=== PATIENT | female | born 1950 | race Caucasian/White ===

== ENCOUNTER → 2016-08-14 | Outpatient (CLI) | payer MEDICAID | END | disposition home or self-care (01) | LOC: CFH 07:36 | PROVIDERS: ATTEND Nurse Practitioner Family | DX: K80.20 Calculus of gallbladder without cholecystitis without obstruction (principal) | CPT/HCPCS: 76700 ==

== ENCOUNTER 2016-10-15 13:20 | Emergency (ER) | payer MEDICARE, MEDICAID ==
[~2016-10-15] VITALS: Ht 152.4 cm; Wt 59.8 kg
[2016-10-15] MEDS ORDERED: SODIUM CHLORIDE 0.9% 1,000 ML IV ONE (14:02)
[2016-10-15] MEDS ORDERED: HYDROmorphone 1 MG/ML, 1ML ONE (14:23)
[2016-10-15] MEDS ORDERED: ONDANSETRON 2MG/ML, 2ML ONE (14:23)
[2016-10-15] MEDS: HYDROmorphone 1 MG/ML, 1ML IVPush PRN ×2 (14:28→16:05)
[2016-10-15] MEDS ORDERED: SODIUM CHLORIDE FLUSH 10ML SYR IVF ONE (14:30)
[2016-10-15] MEDS ORDERED: ONDANSETRON 2MG/ML, 2ML IVPush ONE (14:30)
[2016-10-15] MEDS ORDERED: SODIUM CHLORIDE 0.9% 1,000ML IVBOLUS ONE (14:30)
[2016-10-15 14:55] LABS: ASPARTATE AMINO TRANSFERASE 16 U/L (15-37); BLOOD UREA NITROGEN 15 mg/dL (7-18)
[2016-10-15 15:13] VITALS: BP 144/74
[2016-10-15] MEDS ORDERED: OMNIPAQUE 350 MG/ML, 100ML BOTTLE ONE (15:33)
[2016-10-15] MEDS ORDERED: ONDANSETRON ODT 4 MG PO ONE (17:00)
[2016-10-15] MEDS ORDERED: ONDANSETRON ODT 4 MG ONE (17:00)
== END 2016-10-15 17:03 ==
LOC: ED 16:57
DX: K52.9 Noninfective gastroenteritis and colitis, unspecified (principal); I10 Essential (primary) hypertension
CPT/HCPCS: 36415; 74177; 80053; 81001; 83690; 85025; 93005; 96361; 96374; 96375; 96376; 99285; J1170; J2405; J7030; Q0162; Q9967

== ENCOUNTER 2017-07-15 09:07 | Emergency (ER) | payer MEDICARE, MEDICAID ==
[~2017-07-15] VITALS: Ht 152.4 cm; Wt 63.8 kg
[2017-07-15] MEDS ORDERED: BACITRACIN ZINC OINT 500U/GM, 0.9 GM ONE (09:39)
[2017-07-15] MEDS ORDERED: CEFTRIAXONE 1,000 MG ONE (09:55)
[2017-07-15] MEDS ORDERED: LIDOCAINE-MPF 1%, 2ML ONE (09:56)
[2017-07-15] MEDS ORDERED: DIPH,PERTUSS(ACELL),TET VAC/PF 0.5 ML IM-VACC ONE ×2 (09:56→10:00)
[2017-07-15] MEDS ORDERED: CEFTRIAXONE 1,000 MG IM ONE (10:00)
[2017-07-15 10:43] VITALS: BP 173/78
== END 2017-07-15 10:45 | disposition home or self-care (01) ==
LOC: ED 10:38
DX: S61.250A Open bite of right index finger without damage to nail, initial encounter (principal); L03.011 Cellulitis of right finger; I10 Essential (primary) hypertension; F17.210 Nicotine dependence, cigarettes, uncomplicated; W54.0XXA Bitten by dog, initial encounter; Y93.89 Activity, other specified; Y92.89 Other specified places as the place of occurrence of the external cause; Y99.9 Unspecified external cause status
CPT/HCPCS: 90471; 90715; 96372; 99284; J0696

== ENCOUNTER → 2019-06-10 | Outpatient (CLI) | payer MEDICARE, MEDICAID | END | disposition home or self-care (01) | LOC: CFH 13:20 | PROVIDERS: ATTEND Nurse Practitioner Family | DX: Z12.31 Encounter for screening mammogram for malignant neoplasm of breast (principal); M81.8 Other osteoporosis without current pathological fracture; N95.8 Other specified menopausal and perimenopausal disorders | CPT/HCPCS: 77080; 77067 ==

== ENCOUNTER 2019-11-18 09:37 | Outpatient (CLI) | payer MEDICARE, MEDICAID | END 2019-11-18 23:59 | disposition home or self-care (01) | LOC: CFH 09:37 | PROVIDERS: ATTEND Nurse Practitioner Family | DX: I67.82 Cerebral ischemia (principal); R41.9 Unspecified symptoms and signs involving cognitive functions and awareness | CPT/HCPCS: 70551 ==

== ENCOUNTER → 2019-11-23 | Outpatient (CLI) | payer MEDICARE, MEDICAID | END | disposition home or self-care (01) | LOC: CARD 12:21 | PROVIDERS: ATTEND Nurse Practitioner Family | DX: R41.9 Unspecified symptoms and signs involving cognitive functions and awareness (principal) | CPT/HCPCS: 95819 ==

== ENCOUNTER 2020-06-19 22:57 | Emergency (ER) | payer MEDICARE, MEDICAID ==
[~2020-06-19] VITALS: Ht 147.3 cm; Wt 65.8 kg
[2020-06-19 23:28] VITALS: BP 147/86
== END 2020-06-19 23:30 | disposition home or self-care (01) ==
LOC: ED 23:15
DX: H11.32 Conjunctival hemorrhage, left eye (principal); I10 Essential (primary) hypertension
CPT/HCPCS: 99281

== ENCOUNTER 2020-11-23 18:50 | Emergency (ER) | payer MEDICAID, MEDICARE ==
[~2020-11-23] VITALS: Ht 154.9 cm; Wt 65.0 kg
--- NOTE | 2020-11-23 19:02 | NUR ---
BIBA FOUND BY [employer] AFTER PULLING OVER, FOUND LAYING DOWN. PT REPORTED FEELING SICK +N/V AFTER DONATING PLASMA. PT PLACED ON ALL MONITORS, FALL PRECAUTIONS IN PLACE, ON ARRIVAL BP 72/42, PT PLACED ON SUPINE POSITION SUBSEQUENT BP 99/62.
[2020-11-23] MEDS ORDERED: ONDANSETRON ODT 4 MG ONE (19:27)
--- NOTE | 2020-11-23 19:36 | NUR ---
Break RN: patient c/o nausea. Admin ODT zofran.
[2020-11-23] MEDS ORDERED: ONDANSETRON ODT 4 MG PO ONE (20:00)
--- NOTE | 2020-11-23 20:06 | NUR ---
ASSISTED PT TO RESTROOM.
[2020-11-23] MEDS ORDERED: SODIUM CHLORIDE 0.9% 1,000ML IVBOLUS ONE (20:30)
[2020-11-23] MEDS ORDERED: SODIUM CHLORIDE FLUSH 10ML SYR IVF ONE (20:30)
--- NOTE | 2020-11-23 21:11 | NUR ---
LAB AT BEDSIDE.
[2020-11-23 21:21] VITALS: BP 120/52
[2020-11-23 21:38] LABS: BASOPHILS % (AUTO) 0 % (0-1); EOSINOPHILS % (AUTO) 0 % (1-7); LYMPHOCYTES % (AUTO) 8 % (22-44); MEAN CORPUSCULAR HGB CONC 32.7 g/dL (32.4-35.8); MEAN PLATELET VOLUME 8.9 fL (7.4-10.4); MONOCYTES % (AUTO) 4 % (2-9); NEUTROPHILS % (AUTO) 88 % (42-75); PLATELET COUNT 166 x10^3/uL (130-400); RED BLOOD COUNT 4.68 x10^6/uL (3.82-5.3); RED CELL DISTRIBUTION WIDTH 13.9 % (9.6-15.2)
== END 2020-11-23 22:02 | disposition home or self-care (01) ==
LOC: ED 21:54
DX: R55 Syncope and collapse (principal); E86.0 Dehydration; R42 Dizziness and giddiness; R11.10 Vomiting, unspecified; I10 Essential (primary) hypertension
CPT/HCPCS: 36415; 85025; 93005; 99284; J7030; Q0162